=== PATIENT | female | born 1965 | race Caucasian/White ===

== ENCOUNTER → 2020-12-19 | Outpatient (CLI) | payer OTHER ==
[2020-12-19 18:45] LABS: HEPATITIS B SURFACE ANTIBODY NEGATIVE (POSITIVE); HEPATITIS B SURFACE ANTIGEN NEGATIVE (NEGATIVE)
[2020-12-22 20:08] LABS: HEPATITIS A IgG TOTAL Negative (Negative); HEPATITIS B CORE ANTIBODY IGG Negative (Negative); HEPATITIS C VIRUS GENOTYPE 2-unable to subtype (.)
== END ==
LOC: M PLALAB 11:39
PROVIDERS: ATTEND Internal Medicine Infectious Disease
DX: B18.2 Chronic viral hepatitis C (principal)

== ENCOUNTER → 2021-11-20 | Outpatient (CLI) | payer OTHER ==
[2021-11-20 15:49] LABS: APPEARANCE, URINE HAZY (CLEAR); BACTERIA, URINE AUTO NEGATIVE (NEGATIVE); BILIRUBIN, URINE AUTO NEGATIVE (NEGATIVE); BLOOD, URINE BLOOD NEGATIVE (NEGATIVE); COLOR, URINE YELLOW (YELLOW); GLUCOSE, URINE (UA) AUTO NEGATIVE (NEGATIVE); KETONE, URINE AUTO 1+ mg/dL (NEGATIVE); LEUKOCYTE ESTERASE, URINE AUTO NEGATIVE (NEGATIVE); MUCUS, URINE SMALL (NEGATIVE); NITRITE, URINE AUTO NEGATIVE (NEGATIVE); PROTEIN, URINE AUTO NEGATIVE (NEGATIVE); RBC, URINE AUTO 0 /HPF (0-3); SPECIFIC GRAVITY URINE AUTO 1.016 (1.002-1.035); SQUAMOUS EPITHELIAL CELL UR AU 3 /HPF (0-6); UROBILINOGEN, URINE AUTO 0.2 mg/dL (0.0-2.0); WBC, URINE AUTO 0 /HPF (0-3)
[2021-11-20 15:50] LABS: BASO % 0.4 % (0.0-1.0); EOS % 0.4 % (0.0-3.0); HEMATOCRIT 41.5 % (36.0-47.0); HEMOGLOBIN 13.1 g/dl (12.0-15.5); LYMPH # 1.7 10^3/uL (1.5-5.0); LYMPH % 16.6 % (24.0-44.0); MEAN CORPUSCULAR HEMOGLOBIN 31.6 pg (27.0-33.0); MEAN CORPUSCULAR HGB CONC 31.6 g/dl (32.0-36.5); MEAN CORPUSCULAR VOLUME 100.2 fl (80.0-96.0); MONO # 0.6 10^3/uL (0.0-0.8); MONO % 6.2 % (2.0-8.0); NEUTROPHILS # 7.6 10^3/uL (1.5-8.5); NEUTROPHILS % 76.1 % (36.0-66.0); PLATELET COUNT, AUTOMATED 200 10^3/uL (150-450); RED BLOOD COUNT 4.14 10^6/uL (4.00-5.40)
[2021-11-20 16:18] LABS: ALBUMIN 3.8 GM/DL (3.2-5.2); ALT/SGPT 11 U/L (12-78); BILIRUBIN,TOTAL 0.6 MG/DL (0.2-1.0); BLOOD UREA NITROGEN 12 MG/DL (7-18); CALCIUM LEVEL 9.1 MG/DL (8.5-10.1); CARBON DIOXIDE LEVEL 29 MEQ/L (21-32); CHLORIDE LEVEL 107 MEQ/L (98-107); CREATININE FOR GFR 1.02 MG/DL (0.55-1.30); GLOMERULAR FILTRATION RATE > 60.0 (>51); GLUCOSE, FASTING 95 MG/DL (70-100); POTASSIUM SERUM 4.6 MEQ/L (3.5-5.1); SODIUM LEVEL 137 MEQ/L (136-145); TOTAL PROTEIN 6.9 GM/DL (6.4-8.2)
[2021-11-22 20:08] LABS: HEPATITIS C QUANTITATION HCV Not Detected IU/mL (.)
== END ==
LOC: M PLALAB 12:43
PROVIDERS: ATTEND Internal Medicine Infectious Disease
DX: B18.2 Chronic viral hepatitis C (principal); R35.0 Frequency of micturition

== ENCOUNTER 2023-09-02 00:03 | Inpatient (IN) | payer OTHER, MEDICAID ==
[~2023-09-02] VITALS: Ht 175.3 cm; Wt 71.3 kg
[~2023-09-02 00:03] MED LIST: LITH150C PO; ZIPR40CA20 PO
[2023-09-02] MEDS ORDERED: RISP3TAB20 PO (00:55)
[2023-09-02 01:03] LABS: BASO % 0.3 % (0.0-1.0); EOS # 0.1 10^3/uL (0.0-0.5); EOS % 0.9 % (0.0-3.0); HEMATOCRIT 37.9 % (36.0-47.0); HEMOGLOBIN 12.1 g/dl (12.0-15.5); LYMPH # 1.3 10^3/uL (1.5-5.0); LYMPH % 11.4 % (24.0-44.0); MEAN CORPUSCULAR HEMOGLOBIN 30.6 pg (27.0-33.0); MEAN CORPUSCULAR HGB CONC 31.9 g/dl (32.0-36.5); MEAN CORPUSCULAR VOLUME 95.7 fl (80.0-96.0); NEUTROPHILS # 8.7 10^3/uL (1.5-8.5); NEUTROPHILS % 77.9 % (36.0-66.0); PLATELET COUNT, AUTOMATED 235 10^3/uL (150-450); RED BLOOD COUNT 3.96 10^6/uL (4.00-5.40); WHITE BLOOD COUNT 11.1 10^3/uL (4.0-10.0)
[2023-09-02 01:38] LABS: AMPHETAMINES LEVEL URINE NEGATIVE (NEGATIVE); BARBITURATES URINE NEGATIVE (NEGATIVE); BENZODIAZEPINES URINE NEGATIVE (NEGATIVE); CANNABINOIDS URINE NEGATIVE (NEGATIVE); COCAINE METABOLITE URINE NEGATIVE (NEGATIVE); METHADONE URINE NEGATIVE (NEGATIVE); OPIATES URINE NEGATIVE (NEGATIVE); PHENCYCLIDINE URINE NEGATIVE (NEGATIVE)
[2023-09-02 01:46] LABS: ALBUMIN 3.4 G/DL (3.2-5.2); ALKALINE PHOSPHATASE 93 U/L (46-116); ALT/SGPT 17 U/L (7.0-40); AST/SGOT 14 U/L (<34); BILIRUBIN,DIRECT < 0.1 MG/DL (<0.4); BILIRUBIN,TOTAL 0.2 MG/DL (0.3-1.2); BLOOD UREA NITROGEN 17 MG/DL (9-23); CARBON DIOXIDE LEVEL 28 MMOL/L (20-31); CHLORIDE LEVEL 108 MMOL/L (98-107); CREATININE FOR GFR 0.95 MG/DL (0.55-1.30); ETHYL ALCOHOL (ETHANOL) 0.006 % (0.000-0.010); GLOMERULAR FILTRATION RATE > 60.0 (>51); GLUCOSE, FASTING 97 MG/DL (60-100); POTASSIUM SERUM 4.3 MMOL/L (3.5-5.1); RSV AMPLIFICATION NEGATIVE (NEGATIVE); SALICYLATE LEVEL < 3.0 MG/DL (<30); SODIUM LEVEL 140 MMOL/L (136-145); TOTAL PROTEIN 6.4 G/DL (5.7-8.2)
[2023-09-02] MEDS: LevoFLOXacin IV 750 MG in IV 1 EA IV ONE (01:53)
[2023-09-02] MEDS ORDERED: LITH300C PO (08:24)
[2023-09-02] MEDS ORDERED: CLOZ100T5 PO (08:24)
[2023-09-02] MEDS ORDERED: HOME MED LIST COMPLETE! XX SCH (08:25)
[2023-09-03] MEDS: NICOTINE 21MG/24HR 1 EA TRANSDERMAL TD SCH (09:00)
[2023-09-03] MEDS ORDERED: traZODone 50 MG TAB PO PRN ×2 (10:55→11:05)
[2023-09-03] MEDS ORDERED: diphenhydrAMINE 25MG CAP PO PRN (10:55)
[2023-09-03] MEDS ORDERED: OLANZapine ORAL DISINTEGRATING TAB 5MG PO PRN ×2 (10:55→11:05)
[2023-09-03] MEDS ORDERED: ACETAMINOPHEN TAB 650MG DOSE (2X325MG) PO PRN (10:55)
[2023-09-03] MEDS ORDERED: LORazepam 1 MG TAB PO PRN (10:55)
[2023-09-03 11:35] LABS: BASO % 0.4 % (0.0-1.0); EOS # 0.2 10^3/uL (0.0-0.5); EOS % 1.8 % (0.0-3.0); HEMATOCRIT 39.7 % (36.0-47.0); HEMOGLOBIN 12.6 g/dl (12.0-15.5); LYMPH # 1.3 10^3/uL (1.5-5.0); LYMPH % 14.4 % (24.0-44.0); MEAN CORPUSCULAR HEMOGLOBIN 30.6 pg (27.0-33.0); MEAN CORPUSCULAR HGB CONC 31.7 g/dl (32.0-36.5); MEAN CORPUSCULAR VOLUME 96.4 fl (80.0-96.0); MONO # 0.8 10^3/uL (0.0-0.8); MONO % 9.1 % (2.0-8.0); NEUTROPHILS # 6.6 10^3/uL (1.5-8.5); NEUTROPHILS % 73.7 % (36.0-66.0); PLATELET COUNT, AUTOMATED 255 10^3/uL (150-450); RED BLOOD COUNT 4.12 10^6/uL (4.00-5.40); WHITE BLOOD COUNT 8.9 10^3/uL (4.0-10.0)
[2023-09-03] MEDS: LITHIUM CARBONATE 150 MG CAP PO SCH (12:21)
[2023-09-03] MEDS: LITHIUM CARBONATE 300 MG CAP PO SCH (12:21)
[2023-09-03 15:55] VITALS: BP 126/97; TEMP 97.3; O2SAT 99
[2023-09-03] MEDS: IBUPROFEN 400MG TAB PO PRN (21:12)
[2023-09-04 06:25] VITALS: BP 110/55; TEMP 97.7; O2SAT 95
[2023-09-04 16:12] VITALS: BP 154/69; TEMP 97.7; O2SAT 99
[2023-09-05 06:10] VITALS: BP 104/58; TEMP 98.1
[2023-09-05] MEDS: DOXYCYCLINE HYCLATE 100MG TABLET PO SCH (08:20)
[2023-09-05] MEDS: risperiDONE 1 MG TAB PO SCH (10:20)
[2023-09-05 14:47] VITALS: BP 126/79; TEMP 97.8; TEMP 99.8; O2SAT 99
[2023-09-06] MEDS: risperiDONE 2 MG TAB PO SCH (08:54)
[2023-09-06 18:30] VITALS: BP 130/66; TEMP 97; O2SAT 97
[2023-09-06] MEDS ORDERED: THIAMINE 100 MG TAB PO SCH (21:00)
[2023-09-07] MEDS: MOM 30ML SUSPENSION UDC PO PRN (06:38)
[2023-09-07] MEDS ORDERED: MULTIVITAMINS/MINERALS THERAP 1 TAB PO SCH (09:00)
[2023-09-07] MEDS ORDERED: FOLIC ACID 1MG TAB PO SCH (09:00)
[2023-09-07 16:29] VITALS: BP 113/76; TEMP 98.3; O2SAT 97
[2023-09-07] MEDS: LITHIUM CARBONATE 300 MG CAP PO SCH (20:56)
[2023-09-07] MEDS: LITHIUM CARBONATE 150 MG CAP PO SCH (20:56)
[2023-09-08 06:33] VITALS: BP 123/70; TEMP 97.9; O2SAT 98
[2023-09-08 12:07] LABS: CLOZAPINE 1 135 ng/mL (350-600); CLOZAPINE 2 72 ng/mL (Not Estab.); CLOZAPINE 3 207 ng/mL (.)
[2023-09-08 18:53] VITALS: BP 145/70; TEMP 97.8; O2SAT 100
[2023-09-08] MEDS: PINK BISMUTH SUSP 524MG/30ML ORAL SYRINGE PO PRN (22:53)
[2023-09-09 06:14] VITALS: BP 118/66; TEMP 97.5; O2SAT 98
[2023-09-09 16:24] VITALS: BP 140/66; TEMP 96.8
[2023-09-09] MEDS: risperiDONE 3 MG TAB PO SCH (20:57)
[2023-09-10 06:24] VITALS: BP 121/66; TEMP 97.4; O2SAT 99
[2023-09-11 06:43] VITALS: BP 101/60; TEMP 97.9; O2SAT 99
[2023-09-11 17:45] VITALS: BP 136/59; TEMP 98.6; O2SAT 99
[2023-09-11] MEDS: MAALOX 30 ML SUSP *UDC PO PRN (22:12)
[2023-09-12 06:56] VITALS: BP 125/64; TEMP 97.3; O2SAT 96
[2023-09-12 09:00] VITALS: BP 125/64; TEMP 97.3; O2SAT 96
[2023-09-12 16:16] VITALS: BP 110/57; TEMP 98.6; O2SAT 98
[2023-09-13] MEDS ORDERED: PSEUDOEPHEDRINE 30 MG TAB PO PRN (11:35)
[2023-09-13] MEDS ORDERED: DEXTROMETHORPHAN 60MG/10ML SUSP 90ML BTL(DELSYM) PO PRN (11:35)
[2023-09-13 15:40] VITALS: BP 118/60; TEMP 98.6; O2SAT 97
[2023-09-14 06:27] VITALS: BP 101/53; TEMP 97.7
[2023-09-14 15:56] VITALS: BP 126/60; TEMP 98.4; O2SAT 100
[2023-09-15 06:32] VITALS: BP 105/52; TEMP 97.2; O2SAT 97
[2023-09-15 16:35] VITALS: BP 131/70; TEMP 97.9; O2SAT 96
[2023-09-16 06:15] VITALS: BP 104/53; TEMP 97.3; O2SAT 98
[2023-09-16] MEDS ORDERED: LITH150C PO (09:42)
[2023-09-16] MEDS ORDERED: LITH300C PO (09:42)
[2023-09-16] MEDS ORDERED: RISP3TAB20 PO (09:42)
== END 2023-09-16 11:48 | disposition home or self-care (01) | DRG 885 ==
LOC: M ED 00:03 → M ED INP 09-03 10:54 → M PSY 09-03 15:19
PROVIDERS: ADMIT Student in an Organized Health Care Education/Training Program; ATTEND Student in an Organized Health Care Education/Training Program
DX: F25.8 Other schizoaffective disorders (principal); N39.0 Urinary tract infection, site not specified; Z79.899 Other long term (current) drug therapy; Z88.2 Allergy status to sulfonamides; Z88.0 Allergy status to penicillin; B95.8 Unspecified staphylococcus as the cause of diseases classified elsewhere